=== PATIENT | male | born 1965 | race Caucasian/White ===

== ENCOUNTER → 2018-07-25 | Outpatient (CLI) | payer BC, MEDICARE ==
[~2018-07-25] MED LIST: AMBIEN 5 MG TABL5 M1 PO; ASPIRIN325 PO; CELEBREX 200 M200 M1 PO; CYMBALTA60 MG PO; FLAXSEED OIL PO; FLEXERIL PO; HYDROCODON-ACE1 EAC5 PO; HYDROCODON-ACE1 EACH; IBUPROFEN 600600 M1 PO; MOBIC15 MG; MOBIC15 MG PO; MULTIVITAMINS PO; NEURONTIN 300300 M1 PO; NEURONTIN 300M300 M2 PO; NORCO 10-325 T1 EACH PO; NORCO 5-325 TA1 EACH; OXYIR 5 MG CAPSU5 M1 PO; OXYIR5 MG; PROTONIX40 M2 PO; SIMVASTATIN40 MG PO; VALIUM10 MG PO; XARELTO10 M1 PO; ZANAFLEX4 M1 PO; ZETIA10 MG PO; [UNRECOGNIZED DRUG - OTHER] PO
== END ==
LOC: M.MRI 11:28
DX: M43.17 Spondylolisthesis, lumbosacral region (principal); M51.16 Intervertebral disc disorders with radiculopathy, lumbar region; G89.29 Other chronic pain; M48.061 Spinal stenosis, lumbar region without neurogenic claudication; M79.605 Pain in left leg; M79.604 Pain in right leg